=== PATIENT | male | born 1990 | race Caucasian/White ===

== ENCOUNTER 2020-09-22 13:12 | Emergency (ER) | payer OTHER, SELFPAY ==
--- NOTE | ~2020-09-22 | XR_ITS ---
EXAMINATION: XR chest 2V DATE: 09/22/2020 14:10 INDICATION: Cough. Chest discomfort. TECHNIQUE: Frontal and lateral views of the chest were obtained. COMPARISON: None. FINDINGS: The chest demonstrates clear lungs without pneumonia, pleural effusion, or pneumothorax. Th e heart size is normal. IMPRESSION: 1. No acute cardiopulmonary disease. Reviewed, dictated and finalized at location A.
[2020-09-22 13:20] VITALS: BP 131/104; PULSE 105; RESP 20; TEMP 36.7; O2SAT 100
[2020-09-22 13:35] VITALS: BP 140/90
--- NOTE | 2020-09-22 13:55 | ED.URI ---
HPI - URI/Sore Throat General Chief Complaint: Upper Respiratory Infection Stated Complaint: Cough, Body Aches, Sore Throat Time Seen by Provider: 09/22/20 13:55 Source: patient Mode of arrival: ambulatory Limitations: no limitations History of Present Illness HPI Narrative: Uriel Tracey is a 30 yo male with diverticulitis, colitis, alcohol detox, who comes [facility] with complaints of headache feeling feverish cough that he thinks is wet, nasal congestion x3 days Related Data Home Medications Medication Instructions Recorded Confirmed pantoprazole 40 mg PO DAILY 09/22/20 09/22/20 Allergies Allergy/AdvReac Type Severity Reaction Status Date / Time codeine Allergy Intermediate Rash Verified 09/22/20 13:20 metronidazole Allergy Unknown Rash Verified 09/22/20 13:20 Penicillins Allergy Unknown Hives / Verified 09/22/20 13:20 Red Face trimethobenzamide Allergy Unknown Siezure Verified 09/22/20 13:20 Review of Systems Review of Systems: Narrative: CONSTITUTIONAL: Denies fever, chills, sweats. EYES: Denies visual changes, redness, discharge. ENT: Has rhinorrhea, has congestion, has sore throat, otalgia. CARDIOVASCULAR: Denies chest pain, palpitations, edema. RESPIRATORY: Denies dyspnea, wheezing, has cough GASTROINTESTINAL: Denies abdominal pain, nausea, vomiting, diarrhea. GENITOURINARY: Denies dysuria, hematuria, abnormal discharge SKIN: Denies rash or itching. NEUROLOGIC: Denies numbness, or focal weakness. PSYCHIATRIC: Denies anxiety or depression. [facility] Past Medical History Medical History Alcohol abuse Colitis Diverticulitis Social History Social History (Updated 09/22/20 @ 13:58 by Dolly Beltran CNP) Smoking status: Never smoker Alcohol intake: current Comments At time of signature, I agree with nursing past medical, surgical, social and family history. There is no relevant family history pertinent to the presenting complaint. Exam Narrative: Exam Narrative: GENERAL: This is a well-nourished, well-developed patient, in mild distress. HEAD: normocephalic, atraumatic. EYES: . Sclera clear/white. Vision is grossly intact. EARS: External ears normal, auditory canals clear and without drainage,Hearing grossly intact. NOSE: External nose normal, with nasal discharge, nares with redness, has rhinorrhea. THROAT: Mucous membranes moist, posterior pharynx erythema NECK: Neck supple, CARDIOVASCULAR: tachycardic rate and rhythm without murmurs, gallops, or rubs. RESPIRATORY: Coarse to auscultation. Breath sounds equal bilaterally. Mild blunting om L lower border. No wheezes, rales, or rhonchi. GASTROINTESTINAL: Abdomen soft, non-tender, SKIN: warm, intact with no suspicious lesions or rash, good texture and turgor. NEURO: awake, alert, and oriented to person, place and time. There were no obvious focal neurologic abnormalities. Steady gait EXTREMITIES: Normal range of motion. BACK: Nontender without deformity Course Course Emergency Course: Patient comes to [facility] with complaints of headache sore throat nasal congestion and cough, started 3 days ago Strep test negative Flu test negative Covid PCR sent Chest x-ray shows no acute cardiopulmonary disease, no pneumonia, pleural effusion, or pneumothorax. The heart is normal size. Treated with steroids, Tessalon Perles, Zyrtec,-discussed URI and quarantine until Covid PCR comes back Vital Signs Vital signs: Vital Signs Temperature 98.1 F 09/22/20 13:20 Pulse Rate 105 H 09/22/20 13:20 Respiratory Rate 09/22/20 13:20 Blood Pressure 131/104 H 09/22/20 13:20 Pulse Oximetry 100 09/22/20 13:20 Temperature 98.1 F 09/22/20 13:20 Pulse Rate 105 H 09/22/20 13:20 Respiratory Rate 20 09/22/20 13:20 Blood Pressure 140/90 09/22/20 13:35 Pulse Oximetry 100 09/22/20 13:20 MDM - URI/Sore Throat Differential Diagnosis Differential diagnosis: Likely upp
[2020-09-23 18:15] LABS: SARS-CoV-2 RNA PCR Negative
== END 2020-09-22 14:35 | disposition home or self-care (01) ==
PROVIDERS: Emergency Provider Nurse Practitioner
DX: J06.9 Acute upper respiratory infection, unspecified (principal); Z20.822 Contact with and (suspected) exposure to COVID-19
CPT/HCPCS: 71046; 87081; 87804; 87880; 99213; C9803; G0463; U0003; U0005

== ENCOUNTER 2020-12-23 16:22 | Emergency (ER) | payer OTHER, SELFPAY ==
[2020-12-23 16:27] VITALS: BP 132/103; PULSE 103; RESP 20; TEMP 36.9; O2SAT 99
--- NOTE | 2020-12-23 16:27 | ED.NAVMDI ---
HPI - Nausea/Vomiting/Diarrhea General Stated complaint: nausea and diahhrea Time Seen by Provider: 12/23/20 16:27 Source: patient and RN notes reviewed History of Present Illness HPI Narrative: Patient is a 30-year-old male who presents the urgent with complaints of nausea and diarrhea at 4 AM. Patient states he has a history of IBS and diverticulitis and does have an upcoming colonoscopy and endoscopy scheduled with his GI physician. Patient states that these to symptoms are typical for him and he has been taking his Protonix as directed. Patient denies of any vomiting. Denies of any abdominal pain or fever. Patient states his main purpose for being seen today is because he needs a work note . No other acute complaints. No acute distress noted. Patient aware of the plan of care. Some parts of this dictation were generated by voice recognition software and may contain typographical and/or grammatical inaccuracies. Related Data Home Medications Medication Instructions Recorded Confirmed [id number] 250 1 tablet PO Q4-6H PRN 11/21/20 11/21/20 mg-250 mg-65 mg tablet pantoprazole 40 mg tablet,delayed 40 mg PO QAM 12/19/20 release metoprolol succinate 25 mg PO DAILY 12/23/20 12/23/20 Allergies Allergy/AdvReac Type Severity Reaction Status Date / Time codeine Allergy Intermediate Rash Verified 12/23/20 16:35 metronidazole Allergy Unknown Rash Verified 12/23/20 16:35 Penicillins Allergy Unknown Hives / Verified 12/23/20 16:35 Red Face trimethobenzamide Allergy Unknown Siezure Verified 12/23/20 16:35 Review of Systems Review of Systems: CONSTITUTIONAL: Denies fever, chills, or sweats. EYES: Denies visual changes, redness, or discharge. ENT: Denies rhinorrhea, congestion, sore throat, or otalgia. CARDIOVASCULAR: Denies chest pain, palpitations, or edema. RESPIRATORY: Denies cough or dyspnea. GASTROINTESTINAL: Reports of nausea and diarrhea GENITOURINARY: Denies dysuria or hematuria. SKIN: Denies rash or itching. MUSCULOSKELETAL: Denies back pain, joint pain, or myalgia. NEUROLOGIC: Denies headache, numbness, or weakness. All other systems reviewed are negative, except as documented in HPI. [facility] Past Medical History Medical History (Updated 09/03/21 @ 16:36 by TRINI Palmer) Alcohol abuse Anxiety Colitis Decreased urine stream Diverticulitis Encounter for fertility testing Encounter to establish care Fatty liver GERD (gastroesophageal reflux disease) Hypertension Left lower quadrant pain Low libido Migraines Nocturia Pleurisy Right thyroid nodule Seasonal allergies Thyroid nodule Family History Family History Father Alcoholism Hypertension Depression Mother Depression Bipolar disorder Sibling Alcoholism Depression Grandparent Heart disease Grandparent Cancer Hypertension Heart disease Social History Social History Smoking status: Never smoker Alcohol intake: current Alcohol use details: Fireball nightly Substance use: never Comments At the time of my signature, I reviewed and agree with the nursing past medical, surgical, social, and family history. There is no relevant family history pertinent to the patient complaint. Exam Narrative: GENERAL: This is a well-nourished, well-developed patient, in no apparent distress. HEAD: normocephalic, atraumatic. EYES: PERRL. Sclera clear/white. Vision is grossly intact. EARS: External ears normal NOSE: External nose normal with no obvious nasal discharge, nares without redness, no rhinorrhea. THROAT: Mucous membranes moist NECK: Neck supple CARDIOVASCULAR: Regular rate and rhythm without murmurs, gallops, or rubs. RESPIRATORY: Clear to auscultation. Breath sounds equal bilaterally. No wheezes, rales, or rhonchi. GASTROINTESTINAL: Abdomen soft, non-tender, nondistended. [place]
== END 2020-12-23 16:40 | disposition home or self-care (01) ==
PROVIDERS: Emergency Provider Nurse Practitioner Family; PCP Family Medicine
DX: R11.0 Nausea (principal); R19.7 Diarrhea, unspecified; I10 Essential (primary) hypertension; Z79.82 Long term (current) use of aspirin
CPT/HCPCS: 99211; G0463

== ENCOUNTER → 2021-01-27 03:04 | Outpatient (CLI) | payer OTHER, SELFPAY ==
[2021-01-27 17:41] LABS: SARS-CoV-2 RNA PCR Negative
== END ==
PROVIDERS: PCP Nurse Practitioner Family; Visit Provider Internal Medicine Gastroenterology
DX: Z01.812 Encounter for preprocedural laboratory examination (principal); Z20.822 Contact with and (suspected) exposure to COVID-19
CPT/HCPCS: C9803; U0003; U0005

== ENCOUNTER 2021-01-30 01:53 | Day surgery (SDC) | payer OTHER, SELFPAY ==
[2021-01-16 13:30] VITALS: BMI 26.5
[2021-01-30 09:04] VITALS: BP 143/109; PULSE 100; RESP 16; TEMP 36.1; O2SAT 99
[2021-01-30] MEDS: LACTATED RINGERS 1,000 ML 150 ML IV CONT (09:17)
--- NOTE | 2021-01-30 09:24 | WPDANESEPPF ---
Anes - Initial Pre Proc Eval Procedure: Operation Date: 01/30/21 10:00 Proposed Procedures p Esophagogastroduodenoscopy & Colonoscopy - Rich Grajeda MD Date/Time: 01/30/21 09:24 Surgeon: Rich Grajeda MD Pre Op Diagnosis: GERD, Rectal Bleeding Patient Data Age: 30 Gender: M Height: 1.78 m Weight: 84 kg Last Vital Signs Temp 36.1 C L 01/30/21 09:04 Pulse 100 01/30/21 09:04 Resp 16 01/30/21 09:04 BP 143/109 H 01/30/21 09:04 Pulse Ox 99 01/30/21 09:04 Allergies Allergy/AdvReac Type Severity Reaction Status Date / Time codeine Allergy Intermediate Rash Verified 01/30/21 09:03 metronidazole Allergy Unknown Rash Verified 01/30/21 09:03 Penicillins Allergy Unknown Hives / Verified 01/30/21 09:03 Red Face trimethobenzamide Allergy Unknown Siezure Verified 01/30/21 09:03 Home Medications Medication Instructions Recorded Confirmed Type [id number] 250 1 tablet PO Q4-6H PRN 11/21/20 01/16/21 History mg-250 mg-65 mg tablet lisinopril 10 mg PO DAILY 01/16/21 01/16/21 History pantoprazole 40 mg tablet,delayed 40 mg PO QAM #90 tablet 01/25/21 01/30/21 Rx release Patient hx anesthesia problems: none Family hx anesthesia problems: none Results Review: All pre-operative results and documents have been reviewed as part of the pre-operative evaluation. [facility] Past Medical History Medical History Alcohol abuse Anxiety Anxiety with depression B12 deficiency BMI 26.0-26.9,adult Colitis Decreased urine stream Diverticulitis Elevated liver enzymes Encounter for fertility testing Encounter to establish care Fatty liver GERD (gastroesophageal reflux disease) Hyperlipidemia Hypertension Left lower quadrant pain Low libido Migraines Nocturia Normal thyroid function test Pleurisy Right thyroid nodule Seasonal allergies Thyroid nodule Family History Family History Father Alcoholism Hypertension Depression Mother Depression Bipolar disorder Sibling Alcoholism Depression Grandparent Heart disease Grandparent Cancer Hypertension Heart disease Social History Social History Smoking packs per day: 0.5 Smoking cigarettes per day: 10.0 Years smoked: 7 Smoking pack-years: 3.50 Smoking status: Former smoker Tobacco type: cigarettes and e-cigarettes/vaping Alcohol intake: current Drinks per week: 28 Alcohol use details: Fireball nightly Substance use: never Living arrangements: with friend(s) Spiritual care concerns: No Anes - Eval Final PreProcedure Day of Procedure 01/30/21 09:24 Patient weight: overweight Heart: regular rate and rhythm Lungs: clear to auscultation Airway: Mallampati scale class II Neurological: alert and oriented Last oral intake: >/= 8 hours ASA classification: III Emergent: no Anesthetic plan: proceed Anesthesia type and monitoring: general GIVS and standard monitoring Results Review: All pre-operative results and documents have been reviewed as part of the pre-operative evaluation. Informed Consent: The patient's anesthetic plan and its attendant risks and benefits were discussed with the patient/family/POA. Questions were solicited and answers provided to the satisfaction of the patient/family/POA.
--- NOTE | 2021-01-30 09:40 | WPDGICN ---
Assessment and Plan Assessment and plan (1) Rectal bleeding: Code(s): K62.5 - Hemorrhage of anus and rectum Status: Acute Assessment and Plan: Patient has frequent ongoing rectal bleeding. Plan is for colonoscopy to assess more thoroughly. High-fiber diet is advised. Further recommendations will be given after endoscopy. Patient does have a distant history of diverticulitis. (2) GERD (gastroesophageal reflux disease): Code(s): K21.9 - Gastro-esophageal reflux disease without esophagitis Status: Acute Assessment and Plan: Patient has chronic heartburn and acid reflux. Appears to be controlled with current dose pantoprazole 40mg p.o. daily. An EGD will be performed because of ongoing heartburn and chronic GE reflux. (3) Alcohol abuse: Code(s): F10.10 - Alcohol abuse, uncomplicated Status: Acute Assessment and Plan: Patient uses alcohol on a daily basis. He has been advised to limit in hopefully avoid alcohol in the future. GI Consult Note Consult date/time: 01/30/21 09:40 HPI: Uriel Tracey Jr. is a 30 year old male Presents for both colonoscopy and EGD. He has rectal bleeding very frequently. Has been occurring almost nightly for the last 6 months. He reports several years ago had diverticulitis. At 1 point was told he may have had colitis . He presents today for colonoscopy. Additionally patient reports ongoing heartburn. He takes pantoprazole 40mg p.o. daily. He notes that when this medication is not taken that he promptly will have substernal heartburn and chest pain. Notes occasional indigestion. He denies any bleeding or hematemesis. He has had no weight loss. Social history is significant refer rather frequent ongoing alcohol use on a nightly basis. Review of Systems Review of Systems: All systems reviewed & are unremarkable except as noted in HPI and below PMFSH Past Medical History Medical History Alcohol abuse Anxiety Anxiety with depression B12 deficiency BMI 26.0-26.9,adult Colitis Decreased urine stream Diverticulitis Elevated liver enzymes Encounter for fertility testing Encounter to establish care Fatty liver GERD (gastroesophageal reflux disease) Hyperlipidemia Hypertension Left lower quadrant pain Low libido Migraines Nocturia Normal thyroid function test Pleurisy Right thyroid nodule Seasonal allergies Thyroid nodule Family History Family History Father Alcoholism Hypertension Depression Mother Depression Bipolar disorder Sibling Alcoholism Depression Grandparent Heart disease Grandparent Cancer Hypertension Heart disease Social History Social History Smoking packs per day: 0.5 Smoking cigarettes per day: 10.0 Years smoked: 7 Smoking pack-years: 3.50 Smoking status: Former smoker Tobacco type: cigarettes and e-cigarettes/vaping Alcohol intake: current Drinks per week: 28 Alcohol use details: Fireball nightly Substance use: never Living arrangements: with friend(s) Spiritual care concerns: No Meds Home Medications and Allergies Home Medications Medication Instructions Recorded Confirmed Type [id number] 250 1 tablet PO Q4-6H PRN 11/21/20 01/16/21 History mg-250 mg-65 mg tablet lisinopril 10 mg PO DAILY 01/16/21 01/16/21 History pantoprazole 40 mg tablet,delayed 40 mg PO QAM #90 tablet 01/25/21 01/30/21 Rx release Allergies Allergy/AdvReac Type Severity Reaction Status Date / Time codeine Allergy Intermediate Rash Verified 01/30/21 09:03 metronidazole Allergy Unknown Rash Verified 01/30/21 09:03 Penicillins Allergy Unknown Hives / Verified 01/30/21 09:03 Red Face trimethobenzamide Allergy Unknown Siezure Verified 01/30/21 09:03 Vital Signs Vit
--- NOTE | 2021-01-30 10:01 | SUR.OPER ---
EGD ENDED 957 COLONOSCOPY STARTED 1002
[2021-01-30 10:13] VITALS: BP 113/80; PULSE 106; RESP 19; O2SAT 90
[2021-01-30 10:23] VITALS: BP 110/74; PULSE 103; RESP 21; O2SAT 92
[2021-01-30 10:33] VITALS: BP 131/92; PULSE 93; RESP 20; O2SAT 94
== END 2021-01-30 10:45 | disposition home or self-care (01) ==
PROVIDERS: PCP Nurse Practitioner Family; Visit Provider Internal Medicine Gastroenterology
PROC: 0DJ08ZZ Inspection of Upper Intestinal Tract, Via Natural or Artificial Opening Endoscopic (ICD-10-PCS; CPT 43235; principal; 2021-01-30 10:00)
DX: K62.5 Hemorrhage of anus and rectum (principal); R12 Heartburn; K21.9 Gastro-esophageal reflux disease without esophagitis; K64.8 Other hemorrhoids; K57.30 Diverticulosis of large intestine without perforation or abscess without bleeding; F10.10 Alcohol abuse, uncomplicated; F41.8 Other specified anxiety disorders; E53.8 Deficiency of other specified B group vitamins; R74.01 Elevation of levels of liver transaminase levels; E04.1 Nontoxic single thyroid nodule; Z87.891 Personal history of nicotine dependence; Z79.82 Long term (current) use of aspirin
CPT/HCPCS: 43235; 45378; C9803; J2704; J7120; U0003; U0005